=== PATIENT | female | born 1995 | race Caucasian/White ===

== ENCOUNTER 2019-09-05 08:03 | Emergency (ER) | payer BC, SELFPAY ==
[2019-09-05 08:11] VITALS: BP 135/87; PULSE 94; RESP 20; TEMP 36.6; O2SAT 100
--- NOTE | 2019-09-05 08:19 | ED.URI ---
HPI - URI/Sore Throat General Chief Complaint: Upper Respiratory Infection Stated Complaint: sore throat/ear pain on right Time Seen by Provider: 09/05/19 08:19 Source: patient Mode of arrival: ambulatory Limitations: no limitations History of Present Illness HPI Narrative: Carolina Mcduffie is a 23 yo female with PMH of GERD, comes to [facility] care complaining of sore throat x3 days. Pain on swallowing Related Data Home Medications Medication Instructions Recorded Confirmed desogestrel-ethinyl estradiol 1 tablet PO DAILY 02/08/19 09/05/19 [Isibloom] lansoprazole 30 mg PO DAILY 02/08/19 09/05/19 Allergies Allergy/AdvReac Type Severity Reaction Status Date / Time No Known Allergies Allergy Unverified 04/24/18 11:45 Review of Systems Review of Systems: Narrative: CONSTITUTIONAL: Denies fever, chills, sweats. EYES: Denies visual changes, redness, discharge. ENT: Denies rhinorrhea, congestion, has sore throat, no otalgia. CARDIOVASCULAR: Denies chest pain, palpitations, edema. RESPIRATORY: Denies dyspnea, wheezing, cough GASTROINTESTINAL: Denies abdominal pain, nausea, vomiting, diarrhea. GENITOURINARY: Denies dysuria, hematuria, abnormal discharge SKIN: Denies rash or itching. NEUROLOGIC: Denies numbness, or focal weakness. PSYCHIATRIC: Denies anxiety or depression. [facility] Past Medical History Medical History GERD (gastroesophageal reflux disease) Family History Family History Other High cholesterol Hypertension Social History Social History (Updated 09/05/19 @ 08:30 by Janet Rausch CNP) Smoking status: Never smoker Alcohol intake: current Comments At time of signature, I agree with nursing past medical, surgical, social and family history. There is no relevant family history pertinent to the presenting complaint. Exam Narrative: Exam Narrative: GENERAL: This is a well-nourished, well-developed patient, in mild distress. HEAD: normocephalic, atraumatic. EYES: Sclera clear/white. Vision is grossly intact. EARS: External ears normal, auditory canals clear and without drainage, TMs normal without perforation. Hearing grossly intact.Cerumen in R ear NOSE: External nose normal without nasal discharge, nares without redness, no rhinorrhea. THROAT: Mucous membranes moist, posterior pharynx erythema NECK: Neck supple, CARDIOVASCULAR: Regular rate and rhythm without murmurs, gallops, or rubs. RESPIRATORY: Clear to auscultation. Breath sounds equal bilaterally. No wheezes, rales, or rhonchi. GASTROINTESTINAL: Abdomen soft, SKIN: warm, intact with no suspicious lesions or rash, good texture and turgor. NEURO: awake, alert, and oriented to person, place and time. There were no obvious focal neurologic abnormalities. Steady gait EXTREMITIES: Normal range of motion. BACK: Nontender without deformity Course Course Emergency Course: Strep test - negative Started on amoxicillin with recurrent strep- discussed back up control method Vital Signs Vital signs: Vital Signs Temperature 97.8 F 09/05/19 08:11 Pulse Rate 94 09/05/19 08:11 Respiratory Rate 20 09/05/19 08:11 Blood Pressure 135/87 09/05/19 08:11 Pulse Oximetry 100 09/05/19 08:11 Temperature 97.8 F 09/05/19 08:11 Pulse Rate 94 09/05/19 08:11 Respiratory Rate 20 09/05/19 08:11 Blood Pressure 135/87 09/05/19 08:11 Pulse Oximetry 100 09/05/19 08:11 MDM - URI/Sore Throat Differential Diagnosis Differential diagnosis: Likely upper respiratory infection, sinusitis, pharyngitis and other Lab Data Labs: Strep Screen Presumptive Negative *(Reference Range: Negative)* Discharge Plan Discharge Clinical Impression: Pharyngitis Qualifiers: Pharyngitis/tonsillitis etiology: unspecified etiology Qualified Code(s): J02.9 - Acute pharyngitis, unspecified Pa
== END 2019-09-05 08:40 | disposition home or self-care (01) ==
PROVIDERS: Emergency Provider Nurse Practitioner; PCP Nurse Practitioner Family
DX: J02.9 Acute pharyngitis, unspecified (principal); K21.9 Gastro-esophageal reflux disease without esophagitis
CPT/HCPCS: 87081; 87880; 99213; G0463

== ENCOUNTER 2019-09-20 08:00 | Emergency (ER) | payer BC, SELFPAY ==
[2019-09-20 08:14] VITALS: BP 135/89; PULSE 92; RESP 16; TEMP 37.3; O2SAT 99
--- NOTE | 2019-09-20 08:22 | ED.URI ---
HPI - URI/Sore Throat General Chief Complaint: Upper Respiratory Infection Stated Complaint: Soar throat/ Ear Pain Time Seen by Provider: 09/20/19 08:23 Source: patient and RN notes reviewed Mode of arrival: ambulatory Limitations: no limitations History of Present Illness HPI Narrative: This is a 24 years old female presents to the office for an evaluation of recurrent strep throat. Sore pain began again about three days ago. She was seen here about two weeks ago with similar symptoms. Symptoms resolved and came back. She tries Flonase for her symptoms. 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 Related Data Home Medications Medication Instructions Recorded Confirmed desogestrel-ethinyl estradiol 1 tablet PO DAILY 02/08/19 09/20/19 [Isibloom] lansoprazole 30 mg PO DAILY 02/08/19 09/20/19 Allergies Allergy/AdvReac Type Severity Reaction Status Date / Time No Known Allergies Allergy Verified 09/20/19 08:25 Review of Systems Review of Systems: Narrative: CONSTITUTIONAL: Denies fever, chills. Reports achy ENT: Denies rhinorrhea, congestion. Reports sore throat, otalgia. CARDIOVASCULAR: Denies chest pain, palpitation RESPIRATORY: Denies dyspnea, wheezing, cough GASTROINTESTINAL: Denies abdominal pain, nausea, vomiting SKIN: Denies rash MUSCULOSKELETAL: Denies acute back pain NEUROLOGIC: Denies lightheaded All other systems reviewed are negative, except as documented in HPI. PMFSH Past Medical History Medical History GERD (gastroesophageal reflux disease) Family History Family History Other High cholesterol Hypertension Social History Social History Smoking status: Never smoker Alcohol intake: current Comments At time of signature, I agree with nursing past medical, surgical, social and family history. There is no relevant family history pertinent to the presenting complaint. Exam Narrative: Exam Narrative: GENERAL: This is a well-nourished, well-developed patient, in no apparent distress. EARS: External ears normal, auditory canals clear and without drainage, TMs normal without perforation. Hearing grossly intact. NOSE: External nose normal with no obvious nasal discharge, nares without redness, no rhinorrhea. THROAT: Mucous membranes moist, posterior pharynx erythema with drainage. NECK: Neck supple, non-tender without lymphadenopathy, masses or thyromegaly. CARDIOVASCULAR: Regular rate and rhythm without murmurs, gallops, or rubs. RESPIRATORY: Clear to auscultation. Breath sounds equal bilaterally. No wheezes, rales, or rhonchi. GASTROINTESTINAL: Abdomen soft, non-tender, nondistended. Bowel sounds are active. No hepato-splenomegaly, or palpable masses. No guarding. SKIN: warm, intact with no suspicious lesions or rash, good texture and turgor. NEURO: awake, alert, and oriented to person, place and time. There were no obvious focal neurologic abnormalities. Steady gait Izabel Coma Scale Eye Opening: Spontaneous 4 Izabel Coma Scale Motor: Obeys Commands 6 Izabel Coma Scale Verbal: Oriented 5 Course Vital Signs Vital signs: Vital Signs Temperature 99.1 F 09/20/19 08:14 Pulse Rate 92 09/20/19 08:14 Respiratory Rate 16 09/20/19 08:14 Blood Pressure 135/89 09/20/19 08:14 Pulse Oximetry 99 09/20/19 08:14 Temperature 99.1 F 09/20/19 08:14 Pulse Rate 92 09/20/19 08:14 Respiratory Rate 16 09/20/19 08:14 Blood Pressure 135/89 09/20/19 08:14 Pulse Oximetry 99 09/20/19 08:14 MDM - URI/Sore Throat MDM Narrative Medical decision making narrative: I offered COVID testing; patient declined at this time. Discharge instructions reviewed with patient, as well as provided in writing per nursing staff. The instructions also include specific
== END 2019-09-20 08:40 | disposition home or self-care (01) ==
PROVIDERS: Emergency Provider Nurse Practitioner
DX: J02.9 Acute pharyngitis, unspecified (principal); Z20.828 Contact with and (suspected) exposure to other viral communicable diseases; K21.9 Gastro-esophageal reflux disease without esophagitis
CPT/HCPCS: 87081; 87880; 99213; G0463